=== PATIENT | male | born 1995 | race Caucasian/White ===

== ENCOUNTER 2018-01-15 09:48 | Inpatient (IN) | payer BC, OTHER ==
[~2018-01-15] VITALS: Ht 172.7 cm; Wt 65.8 kg
[2018-01-15 16:10] LABS: *AMPHETAMINE, URINE POSITIVE (NEGATIVE); *BARBITURATE, URINE NEGATIVE (NEGATIVE); *CANNABINOID, URINE POSITIVE (NEGATIVE); *COCCAINE, URINE NEGATIVE (NEGATIVE); *OPIATE, URINE NEGATIVE (NEGATIVE); *PHENCYCLIDINE SCREEN,URINE NEGATIVE (NEGATIVE)
[2018-01-15] MEDS ORDERED: MIRALAX 17 GM POWD.PACK PO PRN (16:15)
[2018-01-15] MEDS ORDERED: LORAZEPAM 2 MG/1 ML VIAL IM PRN (16:15)
[2018-01-15] MEDS ORDERED: MAG HYDROX/AL HYDROX/SIMETH 30 ML LIQUID UDC PO PRN (16:15)
[2018-01-15] MEDS ORDERED: IBUPROFEN 600 MG TABLET PO PRN (16:15)
[2018-01-15] MEDS ORDERED: DICYCLOMINE HCL 20 MG TABLET PO PRN (16:15)
[2018-01-15] MEDS ORDERED: LOPERAMIDE HCL 2 MG CAPSULE PO PRN ×2 (16:15)
[2018-01-15] MEDS ORDERED: ACETAMINOPHEN 325 MG TABLET PO PRN (16:15)
[2018-01-15] MEDS ORDERED: MAGNESIUM HYDROXIDE 30 ML LIQUID UDC PO PRN (16:15)
[2018-01-15] MEDS ORDERED: diphenhydrAMINE 50 MG CAPSULE PO PRN (16:15)
[2018-01-15] MEDS ORDERED: ONDANSETRON ODT 4 MG TAB.RAPDIS SL PRN (16:15)
[2018-01-15] MEDS ORDERED: CLONIDINE HCL 0.1 MG TABLET PO PRN (16:15)
[2018-01-15] MEDS ORDERED: ONDANSETRON 4 MG/2 ML VIAL IM PRN (16:15)
[2018-01-15] MEDS ORDERED: LORAZEPAM 1 MG TABLET PO PRN ×2 (16:15)
--- NOTE | 2018-01-15 16:21 | NUR ---
PRE ASSESSMENT: PT IN INTAKE. HE IS A/O X 4. HIS GAIT IS STEADY. HE REPORTS BINGE DRINKING ALCOHOL (WHISKEY,BEER) AND OCCASIONALLY USING XANAX BUT OF THE LAST YEAR HE HAS BEEN SNORTING/SMOKING METHAMPHETAMINE DAILY. HE USES 0.5-1 GM DAILY AND LAST USED THIS AM AT 0400. WILL FURTHER ASSESS PT ON UNIT. VS WNL.
[2018-01-15 16:30] VITALS: BP 133/82
[2018-01-15 16:58] LABS: BASOPHILS % (AUTO) 0.6 % (0.0-2.0); EOSINOPHILS # (AUTO) 0.2 K/uL (0.0-0.7); EOSINOPHILS % (AUTO) 3.3 % (0.0-7.0); HEMATOCRIT 45.2 % (36.7-47.1); HEMOGLOBIN 15.4 g/dL (12.5-16.3); LYMPHOCYTES # (AUTO) 2.5 K/uL (20.0-40.0); LYMPHOCYTES % (AUTO) 34.4 % (20.5-51.5); MEAN CORPUSCULAR HEMOGLOBIN 30.2 uug (23.8-33.4); MEAN CORPUSCULAR HGB CONC 34 g/dL (32.5-36.3); MEAN CORPUSCULAR VOLUME 88.7 fL (73.0-96.2); MONOCYTES # (AUTO) 0.6 K/uL (2.0-10.0); MONOCYTES % (AUTO) 8.1 % (0.0-11.0); NEUTROPHILS # (AUTO) 3.9 K/uL (1.8-8.9); NEUTROPHILS % (AUTO) 53.6 % (38.5-71.5); PLATELET COUNT (AUTO) 260 K/uL (152-348); WHITE BLOOD COUNT (AUTO) 7.3 K/uL (3.6-10.2)
[2018-01-15 17:15] LABS: ALANINE AMINOTRANSFERASE 25 U/L (16-63); ALKALINE PHOSPHATASE 68 U/L (50-136); AMYLASE 82 U/L (25-115); ASPARTATE AMINOTRANSFERASE 15 U/L (15-37); BILIRUBIN,TOTAL 0.3 mg/dL (0.2-1.0); CARBON DIOXIDE 31 mmol/L (21-32); CHLORIDE 101 mmol/L (98-107); GLUCOSE 78 mg/dL (74-106); MAGNESIUM 2.2 mg/dL (1.8-2.4); POTASSIUM 4.3 mmol/L (3.5-5.1); UREA NITROGEN, BLOOD 13 mg/dL (7-18)
[2018-01-15 17:16] LABS: ETHANOL < 3 MG/DL (0-0)
[2018-01-15 17:21] VITALS: BP 133/82
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
[2018-01-15 18:12] LABS: THYROID STIMULATING HORMONE 1.037 mIU/mL (0.358-3.740)
--- NOTE | 2018-01-15 18:50 | NUR ---
END OF SHIFT: NEWLY ADMITTED PT A/O X 4. NO PRNS GIVEN. PT STILL MILDLY INTOXICATED WITH METH. HE IS COOPERATIVE AND COMPLIANT.WILL PASS SHIFT REPORT TO ONCOMING NURSE
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
[2018-01-15 20:10] VITALS: BP 113/72
[2018-01-16 00:48] VITALS: BP 118/54
[2018-01-16 04:24] VITALS: BP 126/67
--- NOTE | 2018-01-16 07:00 | NUR ---
End of shift note Pt was continuously noted to be anxious, agitated, and restless. Pt remained in room for majority of shift except to get food from kitchen, to go smoke on smoking patio, and to interact with other patients in recreational room. Pt was not given any PRN medications during shift. Pt slept for a total of 9 HRS. Last CIWA: 6 @0400. Respirations even and unlabored. Will endorse to day shift nurse.
--- NOTE | 2018-01-16 07:21 | NUR ---
START OF SHIFT Pt is a 22 yr old male, admitted on 01/15/18 for medically supervised withdrawal and is on PRN's for s/s of w/d. Received report from awake overnight monitor nurse. No PRN's were given during the night. Pt slept for 9 hrs. Last CIWA score was 6 at 0400. Pt remains in bed at this time with respirations even and unlabored. Skin is intact, warm and moist to touch. Pt is on fall and seizure precautions. Call light is within reach. Will continue to monitor.
[2018-01-16 08:10] VITALS: BP 126/70
[2018-01-16] MEDS: MULTIVITAMINS,THERAPEUTIC TABLET PO SCH (08:31)
[2018-01-16] MEDS: FOLIC ACID 1 MG TABLET PO SCH (08:31)
[2018-01-16] MEDS: THIAMINE HCL 100 MG TABLET PO SCH (08:31)
[2018-01-16] MEDS ORDERED: TUBERCULIN,PURIF.PROT.DERIV. 5 TU/0.1 ML TEST ID ONE (09:00)
[2018-01-16 12:00] VITALS: BP 127/67
[2018-01-16 16:00] VITALS: BP 140/83
[2018-01-16] MEDS ORDERED: HYDROXYZINE PAMOATE 25 MG CAPSULE PO PRN (19:00)
--- NOTE | 2018-01-16 19:00 | NUR ---
END OF SHIFT Pt is a 22 yr old male, AA&Ox4. Pt was admitted on 01/15/18 for medically supervised withdrawal and was on PRN's for s/s of w/d. Pt has been noted with anxiety m/b difficulty staying still but states he is able to cope with anxiety level. No PRN's were given during the day. Last CIWA score was 5 at 1600. Pt is to be discharged tomorrow on 01/17/[address] [facility]. Safety precautions observed. Call light is within reach.
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
[2018-01-16] MEDS ORDERED: DIPH50CA37 PO (19:28)
[2018-01-16] MEDS ORDERED: IBUP-1955 PO (19:28)
[2018-01-16] MEDS ORDERED: HYDR-3895 PO (19:28)
[2018-01-16] MEDS ORDERED: CLON0.1T14 PO (19:28)
[2018-01-16 20:15] VITALS: BP 135/82
[2018-01-17 00:46] VITALS: BP 130/72
[2018-01-17 04:12] VITALS: BP 124/78
--- NOTE | 2018-01-17 06:53 | NUR ---
End of shift note Pt was continuously noted with anxiety, agitation, and restlessness. Pt remained in room for majority of shift except to get food from kitchen. Pt has completed PRN medication regimen and is due for discharge today. Pt was not given any PRN medications during shift. Pt slept for a total of 11 HRS. Last CIWA: 5 @0400. Respirations even and unlabored. Will endorse to day shift nurse.
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
[2018-01-17 08:00] VITALS: BP 140/73
[2018-01-17] MEDS: MULTIVITAMINS,THERAPEUTIC TABLET PO SCH (08:20)
[2018-01-17] MEDS: THIAMINE HCL 100 MG TABLET PO SCH (08:20)
[2018-01-17] MEDS: FOLIC ACID 1 MG TABLET PO SCH (08:20)
--- NOTE | 2018-01-17 09:32 | NUR ---
DISCHARGE Pt 22 y/o male admitted for methamphetamine intoxication/ bzo/ etoh disorder. Pt alert and oriented to name, place, and time. Perrla. Skin warm and dry to touch. Respirations even and unlabored. No hand tremors noted. Pt completed a 5 day ativan taper. No belongings in cabinet and cassetted noted. No home medications noted. Discharge papers, prescriptions, and document to read ppd test on left FA on 01/18/18 packed in bag. Pt discharged to [facility] via private transport. No distress noted.
[2018-01-17 13:16] LABS: HEPATITIS B SURFACE AG Negative (Negative)
== END 2018-01-17 09:32 | disposition other institution (70) | DRG 895 ==
LOC: SRC 15:25
PROVIDERS: ADMIT Internal Medicine; ATTEND Internal Medicine
PROC: HZ2ZZZZ Detoxification Services for Substance Abuse Treatment (ICD-10-PCS; principal; 2018-01-15)
PROC: HZ41ZZZ Group Counseling for Substance Abuse Treatment, Behavioral (ICD-10-PCS; 2018-01-16)
DX: F15.229 Other stimulant dependence with intoxication, unspecified (principal); F39 Unspecified mood [affective] disorder; F10.230 Alcohol dependence with withdrawal, uncomplicated; F11.11 Opioid abuse, in remission; F12.20 Cannabis dependence, uncomplicated; F13.230 Sedative, hypnotic or anxiolytic dependence with withdrawal, uncomplicated; Y90.0 Blood alcohol level of less than 20 mg/100 ml; F17.210 Nicotine dependence, cigarettes, uncomplicated; Z91.89 Other specified personal risk factors, not elsewhere classified; Z81.1 Family history of alcohol abuse and dependence; F90.9 Attention-deficit hyperactivity disorder, unspecified type; F41.9 Anxiety disorder, unspecified; Z82.49 Family history of ischemic heart disease and other diseases of the circulatory system; Z91.5 Personal history of self-harm
CPT/HCPCS: 36415; 70030-TC; 80307; 80324; 80349; 83735; 84443; 85025; 86580; 86592; 86705; 86803; 87340; 87806; G0480